=== PATIENT | male | born 1965 | race Caucasian/White ===

== ENCOUNTER 2018-01-26 14:18 | Emergency (ER) | payer OTHER ==
[~2018-01-26] VITALS: Ht 162.5 cm; Wt 77.1 kg
[~2018-01-26 14:18] MED LIST: AMOXICILLIN500 M2 PO; FLEXERIL5 MG PO; HYDROCODONE BIT1 T11 PO; MOTRIN800 MG PO; ZYRTEC10 MG PO; Zofran4 MG PO
[2018-01-26] MEDS ORDERED: Tobrex Ophth S2.5 ML OPH (14:31)
== END 2018-01-26 14:51 | disposition home or self-care (01) ==
LOC: ED 14:18
DX: S05.02XA Injury of conjunctiva and corneal abrasion without foreign body, left eye, initial encounter (principal); R03.0 Elevated blood-pressure reading, without diagnosis of hypertension; Z79.899 Other long term (current) drug therapy; X58.XXXA Exposure to other specified factors, initial encounter; Y93.01 Activity, walking, marching and hiking; Y92.89 Other specified places as the place of occurrence of the external cause; Y99.8 Other external cause status

== ENCOUNTER → 2019-10-14 | Outpatient (CLI) | payer OTHER ==
[~2019-10-14] MED LIST changes: +Tobrex Ophth S2.5 ML OPH
[2019-10-14 10:28] LABS: HEMATOCRIT 50.2 % (42.0-52.0); HEMOGLOBIN 16.4 g/dl (14.0-18.0); MEAN CELL VOLUME 87.6 fl (80.0-94.0); MEAN CORPUSCULAR HGB 28.6 pg (27.0-31.0); MEAN CORPUSCULAR HGB CONC 32.7 g/dl (33.0-37.0); RED BLOOD COUNT 5.73 10*6/uL (4.50-5.90); RED CELL DISTRI WIDTH 13.2 % (0-14.5)
[2019-10-14 10:57] LABS: ALBUMIN 4.4 gm/dl (3.1-4.5); ALKALINE PHOSPHATASE 95 U/L (45-117); BUN 27 mg/dl (7-24); CHLORIDE 105 mmol/L (98-107); CHOLESTEROL 186 mg/dL (<200); CREATININE 1.19 mg/dL (0.70-1.30); HDL CHOLESTEROL 48 mg/dl (40-60); LDL CHOLESTEROL 125 mg/dL (9-159); POTASSIUM 3.9 mmol/L (3.5-5.1); SGOT/AST 22 IU/L (3-35); SGPT/ALT 41 U/L (12-78); SODIUM 141 mmol/L (136-145); TRIGLYCERIDES 65 mg/dl (<150); VLDL CHOLESTEROL 13 mg/dL (6-40)
[2019-10-15 09:08] LABS: HEP B CORE AB, IGM Negative (Negative); HEPATITIS B SURFACE AG Negative (Negative); HEPATITIS C VIRUS ANTIBODY <0.1 s/co (0.0-0.9)
== END | disposition home or self-care (01) ==
LOC: LAB 09:24
PROVIDERS: Registered Nurse Flight
DX: Z13.220 Encounter for screening for lipoid disorders (principal); Z12.11 Encounter for screening for malignant neoplasm of colon; Z12.5 Encounter for screening for malignant neoplasm of prostate; Z20.2 Contact with and (suspected) exposure to infections with a predominantly sexual mode of transmission; Z83.3 Family history of diabetes mellitus

== ENCOUNTER 2020-09-21 17:49 | Emergency (ER) | payer OTHER ==
[~2020-09-21] VITALS: Ht 162.5 cm; Wt 77.1 kg
[2020-09-21] MEDS ORDERED: ROBAXIN-750750 MG PO (20:07)
== END 2020-09-21 20:07 | disposition home or self-care (01) ==
LOC: ED 17:49
DX: S02.2XXA Fracture of nasal bones, initial encounter for closed fracture (principal); S00.93XA Contusion of unspecified part of head, initial encounter; S13.4XXA Sprain of ligaments of cervical spine, initial encounter; M19.90 Unspecified osteoarthritis, unspecified site; Z79.899 Other long term (current) drug therapy; Y08.89XA Assault by other specified means, initial encounter; Y93.89 Activity, other specified; Y92.89 Other specified places as the place of occurrence of the external cause; Y99.8 Other external cause status

== ENCOUNTER 2021-09-29 10:16 | Emergency (ER) | payer OTHER ==
[~2021-09-29] VITALS: Wt 79.4 kg
[~2021-09-29 10:16] MED LIST changes: +ROBAXIN-750750 MG PO
== END 2021-09-29 11:01 | disposition home or self-care (01) ==
LOC: ED 10:16
DX: J06.9 Acute upper respiratory infection, unspecified (principal); Z20.822 Contact with and (suspected) exposure to COVID-19

== ENCOUNTER → 2021-10-12 | Outpatient (CLI) | payer OTHER | END | disposition home or self-care (01) | LOC: COVID19 16:59 | PROVIDERS: ATTEND Family Medicine | DX: Z20.822 Contact with and (suspected) exposure to COVID-19 (principal) ==

== ENCOUNTER 2022-04-05 03:46 | Emergency (ER) | payer OTHER ==
[~2022-04-05] VITALS: Wt 79.4 kg
[2022-04-05 04:11] LABS: BASO # 0.1 10*3/uL (0.0-0.1); BASO % 0.2 % (0.0-1.0); EOS # 0.1 10*3/uL (0.0-0.4); EOS % 0.5 % (1.0-4.0); HEMATOCRIT 45.8 % (42.0-52.0); LYMPH # 1.1 10*3/uL (1.3-4.4); LYMPH % 5.1 % (27.0-41.0); MEAN CELL VOLUME 85.9 fl (80.0-94.0); MEAN CORPUSCULAR HGB 28.7 pg (27.0-31.0); MEAN CORPUSCULAR HGB CONC 33.4 g/dl (33.0-37.0); MEAN PLATELET VOLUME 10.1 fl (9.6-12.3); MONO # 1.2 10*3/uL (0.1-1.0); MONO % 5.7 % (3.0-9.0); NEUT # 18.1 10*3/uL (2.3-7.9); PLATELET COUNT AUTOMATED 175 10*3/uL (130-400); RED BLOOD COUNT 5.33 10*6/uL (4.50-5.90); RED CELL DISTRI WIDTH 13.6 % (0-14.5); WHITE BLOOD COUNT 20.5 10*3/uL (4.8-10.8)
[2022-04-05 04:22] LABS: ACT PARTIAL THROMBO TIME 28.2 SECONDS (20.0-32.1); INTERNATIONAL NORM RATIO 1.2 (2.0-3.5)
[2022-04-05 04:27] LABS: ALKALINE PHOSPHATASE 68 U/L (45-117); BUN 27 mg/dl (7-24); CHLORIDE 100 mmol/L (98-107); POTASSIUM 3.9 mmol/L (3.5-5.1); SGOT/AST 293 IU/L (3-35); SGPT/ALT 79 U/L (12-78); SODIUM 135 mmol/L (136-145); TOTAL PROTEIN 6.5 gm/dL (6.4-8.2)
== END 2022-04-05 11:00 | disposition short-term general hospital (02) ==
LOC: ED 03:46
PROVIDERS: Emergency Medicine
DX: J96.90 Respiratory failure, unspecified, unspecified whether with hypoxia or hypercapnia (principal); Z20.822 Contact with and (suspected) exposure to COVID-19; I21.4 Non-ST elevation (NSTEMI) myocardial infarction; J18.9 Pneumonia, unspecified organism; Z79.899 Other long term (current) drug therapy; Z79.2 Long term (current) use of antibiotics

== ENCOUNTER 2022-07-02 12:41 | Emergency (ER) | payer OTHER ==
[~2022-07-02] VITALS: Ht 162.5 cm; Wt 74.8 kg
[2022-07-02] MEDS ORDERED: CLOPIDOGREL75 MG PO (13:03)
[2022-07-02] MEDS ORDERED: ATORVASTATIN CA40 M1 PO (13:03)
[2022-07-02] MEDS ORDERED: FUROSEMIDE20 M1 PO (13:04)
[2022-07-02] MEDS ORDERED: METOPROLOL SUCC25 M2 PO (13:04)
== END 2022-07-02 15:11 | disposition home or self-care (01) ==
LOC: ED 12:41
DX: L02.31 Cutaneous abscess of buttock (principal)

== ENCOUNTER 2022-10-09 10:52 | Emergency (ER) | payer OTHER ==
[~2022-10-09] VITALS: Wt 75.3 kg
[~2022-10-09 10:52] MED LIST changes: +ATORVASTATIN CA40 M1 PO; +CLOPIDOGREL75 MG PO; +FUROSEMIDE20 M1 PO; +METOPROLOL SUCC25 M2 PO
[2022-10-09] MEDS ORDERED: FLONASE ALLERG9.9 ML NAS (13:19)
[2022-10-09] MEDS ORDERED: ZYRTEC10 M2 PO (13:19)
== END 2022-10-09 13:31 | disposition home or self-care (01) ==
LOC: ED 10:52
DX: J06.9 Acute upper respiratory infection, unspecified (principal); M19.90 Unspecified osteoarthritis, unspecified site; Z98.890 Other specified postprocedural states; Z20.822 Contact with and (suspected) exposure to COVID-19

== ENCOUNTER 2023-10-20 18:11 | Emergency (ER) | payer OTHER ==
[~2023-10-20] VITALS: Ht 162.5 cm; Wt 86.2 kg
[~2023-10-20 18:11] MED LIST changes: +FLONASE ALLERG9.9 ML NAS; +ZYRTEC10 M2 PO
[2023-10-20] MEDS ORDERED: Sulfamethoxazole/Trimethopri 1 TAB TAB PO ONE (18:25)
[2023-10-20] MEDS ORDERED: SEPTDS PO (18:29)
== END 2023-10-20 18:41 | disposition home or self-care (01) ==
LOC: ED 18:11
DX: L02.414 Cutaneous abscess of left upper limb (principal); L03.114 Cellulitis of left upper limb

== ENCOUNTER 2024-02-29 17:22 | Emergency (ER) | payer OTHER ==
[~2024-02-29] VITALS: Ht 162.5 cm; Wt 79.4 kg
[~2024-02-29 17:22] MED LIST changes: +SEPTDS PO
[2024-02-29] MEDS ORDERED: Acetaminophen/Oxycodone 5 MG/325 MG TABLET PO ONE (17:25)
[2024-02-29] MEDS ORDERED: HYDROCODONE-AC1 EAC1 PO (17:54)
== END 2024-02-29 18:08 | disposition home or self-care (01) ==
LOC: ED 17:22
DX: S92.421A Displaced fracture of distal phalanx of right great toe, initial encounter for closed fracture (principal); M19.90 Unspecified osteoarthritis, unspecified site; I25.2 Old myocardial infarction; Z98.890 Other specified postprocedural states; W22.8XXA Striking against or struck by other objects, initial encounter; Y93.89 Activity, other specified; Y92.009 Unspecified place in unspecified non-institutional (private) residence as the place of occurrence of the external cause; Y99.8 Other external cause status

== ENCOUNTER 2024-07-05 12:42 | Emergency (ER) | payer OTHER ==
[~2024-07-05] VITALS: Ht 162.5 cm; Wt 79.4 kg
[~2024-07-05 12:42] MED LIST changes: +HYDROCODONE-AC1 EAC1 PO
[2024-07-05] MEDS ORDERED: ASPIRIN ADULT L81 M2 PO (12:58)
[2024-07-05] MEDS ORDERED: XARE20MG PO (12:59)
[2024-07-05] MEDS ORDERED: CEPHALEXIN500 M1 PO (13:12)
[2024-07-05] MEDS ORDERED: CEPHALEXIN 500 MG CAP PO ONE (13:15)
[2024-07-05] MEDS ORDERED: MUPIROCIN 15 GM TUBE T SCH (14:00)
== END 2024-07-05 13:25 | disposition home or self-care (01) ==
LOC: ED 12:42
DX: L03.114 Cellulitis of left upper limb (principal); I10 Essential (primary) hypertension; E78.00 Pure hypercholesterolemia, unspecified; I25.2 Old myocardial infarction; Z79.82 Long term (current) use of aspirin; Z79.899 Other long term (current) drug therapy

== ENCOUNTER → 2024-09-25 | Outpatient (CLI) | payer OTHER ==
[~2024-09-25] MED LIST changes: +ASPIRIN ADULT L81 M2 PO; +CEPHALEXIN500 M1 PO; +XARE20MG PO
[2024-09-25 11:41] LABS: BASO % 0.4 % (0.0-1.0); EOS # 0.1 10*3/uL (0.0-0.4); EOS % 0.9 % (1.0-4.0); HEMATOCRIT 45.3 % (42.0-52.0); MEAN CELL VOLUME 86.5 fl (80.0-94.0); MEAN CORPUSCULAR HGB CONC 33.6 g/dl (33.0-37.0); MONO # 0.5 10*3/uL (0.1-1.0); MONO % 5.5 % (3.0-9.0); NEUT # 7.3 10*3/uL (2.3-7.9); NEUT % 74.9 % (47.0-73.0); PLATELET COUNT AUTOMATED 178 10*3/uL (130-400); RED BLOOD COUNT 5.24 10*6/uL (4.50-5.90); RED CELL DISTRI WIDTH 13.2 % (0-14.5); WHITE BLOOD COUNT 9.7 10*3/uL (4.8-10.8)
[2024-09-25 12:07] LABS: ALKALINE PHOSPHATASE 99 U/L (46-116); BUN 13 mg/dl (9-23); CHLORIDE 106 mmol/L (98-107); CHOLESTEROL 115 mg/dL (<200); LDL CHOLESTEROL 47 mg/dL (9-159); POTASSIUM 3.6 mmol/L (3.4-5.1); SGPT/ALT 40 U/L (5-49); TOTAL PROTEIN 6.7 gm/dL (6.0-8.0); TRIGLYCERIDES 132 mg/dl (<150)
== END | disposition home or self-care (01) ==
LOC: LAB 10:38
PROVIDERS: ATTEND Nurse Practitioner Family
DX: Z13.1 Encounter for screening for diabetes mellitus (principal); I10 Essential (primary) hypertension; I25.10 Atherosclerotic heart disease of native coronary artery without angina pectoris; E78.2 Mixed hyperlipidemia; I48.91 Unspecified atrial fibrillation; I50.9 Heart failure, unspecified; Z91.09 Other allergy status, other than to drugs and biological substances

== ENCOUNTER 2025-04-04 14:09 | Emergency (ER) | payer OTHER ==
[~2025-04-04] VITALS: Ht 162.5 cm; Wt 81.6 kg
[2025-04-04] MEDS ORDERED: AMOX-CLAV 875-1 EACH PO (14:50)
[2025-04-04] MEDS ORDERED: Ondansetron4 MG PO (14:50)
[2025-04-04] MEDS ORDERED: Meclizine25 MG PO (14:50)
[2025-04-04] MEDS ORDERED: PREDNISONE20 M1 PO (14:50)
== END 2025-04-04 14:56 | disposition home or self-care (01) ==
LOC: ED 14:09
DX: J32.9 Chronic sinusitis, unspecified (principal); G56.02 Carpal tunnel syndrome, left upper limb; M19.90 Unspecified osteoarthritis, unspecified site; I25.2 Old myocardial infarction

== ENCOUNTER 2025-05-17 17:47 | Emergency (ER) | payer OTHER ==
[~2025-05-17] VITALS: Ht 162.5 cm; Wt 81.6 kg
[~2025-05-17 17:47] MED LIST changes: +AMOX-CLAV 875-1 EACH PO; +Meclizine25 MG PO; +Ondansetron4 MG PO; +PREDNISONE20 M1 PO
[2025-05-17] MEDS ORDERED: FLONASE ALLERG9.9 ML NAS (18:37)
[2025-05-17] MEDS ORDERED: CEPHALEXIN500 M1 PO (18:37)
[2025-05-17] MEDS ORDERED: CEPHALEXIN 500 MG CAP PO ONE (18:40)
== END 2025-05-17 18:55 | disposition home or self-care (01) ==
LOC: ED 17:47
DX: L02.412 Cutaneous abscess of left axilla (principal); J06.9 Acute upper respiratory infection, unspecified; Z79.899 Other long term (current) drug therapy; Z79.82 Long term (current) use of aspirin; I25.2 Old myocardial infarction